=== PATIENT | female | born 1940 | race Caucasian/White ===

== ENCOUNTER 2017-06-22 16:08 | Outpatient (CLI) | payer MEDICARE, OTHER | END 2017-06-22 16:09 | disposition home or self-care (01) | LOC: BICMAMMO 16:08 | PROVIDERS: ATTEND Internal Medicine | DX: Z12.31 Encounter for screening mammogram for malignant neoplasm of breast (principal); R92.1 Mammographic calcification found on diagnostic imaging of breast | CPT/HCPCS: 77063; 77067 ==

== ENCOUNTER 2017-11-29 11:17 | Outpatient (CLI) | payer MEDICARE, OTHER | END 2017-11-29 11:18 | disposition home or self-care (01) | LOC: BICRAD 11:17 | PROVIDERS: ATTEND Internal Medicine | DX: M25.559 Pain in unspecified hip (principal) | CPT/HCPCS: 71046 ==

== ENCOUNTER 2018-02-10 11:22 | Observation (INO) | payer MEDICARE, OTHER ==
[2018-02-10 12:26] LABS: #Basophils 0.1 thou/uL (0.0-0.2); #Eosinphils 0.1 thou/uL (0.0-0.7); #Lymphocytes 1.6 thou/uL (1.20-3.40); #Monocytes 0.5 thou/uL (0.11-0.59); #Neutrophils 3.4 thou/uL (1.40-6.50); %Eosinophils 1.1 % (0.0-10.0); %Lymphocytes 29.1 % (21.0-51.0); %Neutrophils 60.9 % (42.0-75.0); Hemoglobin 12.3 g/dL (12.0-16.0); Mean Corpuscular HGB CONC 33.2 g/dL (32.0-36.0); Mean Corpuscular Hemoglobin 29.1 pg (27.0-31.0); Mean Corpuscular Volume 87.6 fL (78.0-98.0); Mean Platelet Volume 7.6 fL (7.4-10.4); Platelet Count 216 thou/uL (130-400); RBC Distribution Width 11.8 % (11.5-14.5); Red Blood Cell (RBC) Count 4.22 mill/uL (4.20-5.40); White Blood Cell (WBC) Count 5.6 thou/uL (4.8-10.8)
[2018-02-10 12:31] LABS: PTT 28.8 SEC (22.9-36.1); Prothrombin Time 12.8 SEC (12.0-14.7)
[2018-02-10 12:41] LABS: ALT (SGPT) 22 U/L (8-55); AST (SGOT) 24 U/L (5-34); Albumin 4.1 g/dL (3.4-4.8); Alkaline Phosphatase 58 U/L (40-150); Anion Gap 14 mmol/L (10-20); BUN (Urea Nitrogen) 10 mg/dL (9.8-20.1); Bilirubin, Total 0.5 mg/dL (0.2-1.2); Calc. Creatinine Clearance 0 mL/min (70-130); Calcium 9.3 mg/dL (7.8-10.44); Carbon Dioxide 27 mmol/L (23-31); Chloride 100 mmol/L (98-107); Estimated GFR-MDRD 73; Globulin 2.6 g/dL (2.4-3.5); Glucose 92 mg/dL (83-110); Potassium 3.7 mmol/L (3.5-5.1); Protein, Total 6.7 g/dL (6.0-8.3); Sodium 137 mmol/L (136-145)
[2018-02-10 12:42] LABS: CKMB 2.5 ng/mL (0-6.6); Troponin I Less than 0.010 ng/mL (< 0.028)
--- NOTE | 2018-02-10 12:46 | CT ---
CT HEAD NONCONTRAST: Date: 02/10/18 INDICATION: Altered mental status, possible TIA, confusion. FINDINGS: There is no evidence of intracranial hemorrhage, mass effect, or midline shift. Ventricular system is appropriate in size for patient's age. Imaged paranasal sinuses and mastoid air cells are clear. IMPRESSION: No acute intracranial abnormalities. POS: [facility]
[2018-02-10 15:25] VITALS: BMI 27.1
[2018-02-10] MEDS ORDERED: Ondansetron HCl/PF 4 MG/2 ML Vial IVP PRN (15:49)
[2018-02-10] MEDS ORDERED: hydrALAZINE 20 MG/ML VIAL SLOW IVP PRN (15:49)
[2018-02-10] MEDS ORDERED: Ondansetron ODT 4 MG TAB PO PRN (15:49)
--- NOTE | 2018-02-10 16:40 | HP ---
DATE OF ADMISSION: 02/10/2018 PRIMARY CARE PHYSICIAN: Dr. Sara Alvarez. CHIEF COMPLAINT: Confusion. HISTORY OF PRESENT ILLNESS: This is an 78-year-old female who presented to [facility] Emergency Department after apparently having a lapse of memory regarding location of a restauran t. The patient states she was driving in her car when she forgot the directions to a local coffee sh op to meet a friend. The patient knew who she was, the day, but she did not remember the directions on how to get to the restaurant. The patient states she called her friend whom she was about to meet at the coffee shop and decided to cancel the date. The patient drove home finding her home without difficulty without loss of consciousness, headache or unilateral weakness with complete resolution of her symptoms. The patient denied any recent exposure history, recent immunizations, new medications , recent fall, injury or difficulty with swallowing. The patient states she occasionally is forgetfu l of people's names, but otherwise is functional of all activities of daily living including driving, shopping, living independently and keeping her own calendar. The patient states she exercises appro ximately one time per week with a personal care aide. The patient apparently called her primary care navin ritchie's office who directed her to the emergency room for evaluation given her history and story. The patient underwent evaluation in the emergency room including CT of the brain showing no acute pro cess. NIH score was 0. All labs were negative and patient was transferred to [facility] for evaluation. PAST MEDICAL HISTORY: 1. History of small-bowel obstruction in 2013. 2. Osteoarthritis. 3. Gastroesophageal reflux disease. 4. History of actinic keratosis. 5. Hypertension. 6. Occipital neuralgia. 7. Cervical disk disease. 8. Asthma. 9. Irritable bowel syndrome. PAST SURGICAL HISTORY: 1. Status post carpal tunnel release on the right hand. 2. Status post transvaginal resection of the urethra. 3. Status post bilateral bunionectomy. 4. Status post left arthroscopic knee surgery. 5. Status post laparoscopic cholecystectomy. 6. Status post total vaginal hysterectomy secondarily to uterine prolapse. 7. Status post bilateral salpingo-oophorectomy. 8. Status post appendectomy. 9. Status post tendon repair of the right hip. CURRENT MEDICATIONS: List will need to be confirmed for completeness with the patient. 1. Levothyroxine 50 mcg p.o. daily. 2. Simvastatin 5 mg p.o. at bedtime. 3. Nortriptyline 20 mg p.o. b.i.d. 4. Tramadol 50 mg p.r.n. 5. Nitroglycerin 0.4 mg sublingually every 5 minutes p.r.n. chest pain. 6. Enteric-coated aspirin 81 mg p.o. daily. 7. Vitamin B complex 1 tablet p.o. daily. 8. Symbicort 160/4.5 two puffs inhaled b.i.d. 9. Coenzyme Q10 200 mg p.o. daily. 10. Hydrochlorothiazide 25 mg p.o. daily. 11. Lorazepam 0.5 mg p.r.n. 12. Metoprolol succinate 25 mg p.o. daily. 13. Rabeprazole 20 mg p.o. daily. 14. VESIcare 10 mg p.o. daily. ALLERGIES: ACETAMINOPHEN, AMOXICILLIN, CHLORPHENIRAMINE, AVELOX, HYDROCODONE, CLINDAMYCIN. FAMILY HISTORY: Mother at the age of 64 secondary to complications of cervical cancer. Father at age 62 from myocardial infarction. SOCIAL HISTORY: The patient is since 2006. No current alcohol, tobacco or illicit drug use. Functional of all activities of daily living. Resides in [place], [place]. REVIEW OF SYSTEMS: The following complete review of systems was negative, unless otherwise mentioned in the HPI or below: Constitutional: Weight loss or gain, ability to conduct usual activities. Skin: Rash, itching. Eyes: Double vision, pain. ENT/Mouth: Nose bleeding, neck stiffness, pain, tenderness. Cardiovascular: Palpitations, dyspnea on exertion, orthopnea. Respiratory: Shortness of breath, wheezing, cough, hemoptysis, fever or night sweats. Gastrointestinal: Poor appetite, abdominal pain, heartburn, nausea, vomiting, constipation, or diarr hea. Genitourinary: Urgency, frequency, dysuria, nocturia. Musculoskeletal: Pain, swelling. Neurologic/Psychiatric: Anxiety, depression. Allergy/Immunologic: Skin rash, bleeding tendency. Otherwise negative except as stated per HPI. PHYSICAL EXAMINATION: VITAL SIGNS: In the emergency room, blood pressure 184/95, pulse 92, respiratory rate 17, temperatur e 97.9 degrees Fahrenheit, O2 saturation 97% on room air. GENERAL APPEARANCE: This is an 78-year-old female, alert and oriented x3, pleasant, conver antonio, smiling, in no acute distress. HEENT: Pupils are equal, round, and reactive to light and accommodation. Extraocular muscles are in tact. No scleral icterus, no conjunctival injection. Nares patent. OP is clear. Teeth in good rep air. NECK: Supple, no cervical adenopathy, no thyromegaly, no carotid bruits, no JVD appreciated. Cervic al spine with full active and passive range of motion. No meningeal signs noted. CHEST: Occasional coarse breath sound in the bases bilaterally. CARDIOVASCULAR: S1, S2, without noted murmur, rub or gallop. ABDOMEN: Rounded, soft, nontender, nondistended. Bowel sounds are positive in all four quadrants. There is no hepatosplenomegaly, no abdominal bruits, no rebound or guarding appreciated. EXTREMITIES: Warm and dry with fair turgor. No clubbing, cyanosis or asymmetric edema appreciated. Pulses palpable distally at the dorsalis pedis, posterior tibial and popliteal arteries bilaterally. Capillary refill less than 2 seconds. NEUROLOGIC: Cranial nerves II-XII are grossly intact. No focal or lateralizing signs appreciated. PERTINENT LABORATORY DATA: Complete metabolic profile within normal limits. CBC within normal limit s. PT 12.8, INR 1.0, PTT 28.8. CT of the brain without contrast dated 02/10/2018 showed no acute in tracranial process. EKG dated 02/10/2018 by my interpretation shows sinus mechanism with heart rates in the 80s. Normal R-wave progression noted in the precordial leads. Normal axis. No acute ST-T w ave changes appreciated. ASSESSMENT AND PLAN: 1. Acute confusional state. Etiology unclear. Transient and resolved currently. We will check a c arotid Doppler study to rule out focal stenosis and questionable TIA like symptoms. Currently, no ev idence of neurologic deficit. Continue telemetry monitoring to rule out acute arrhythmia or dysrhyth chiquita. 2. Hypertension. Resume home antihypertensive regimen and monitor serial blood pressure trend. 3. Hypothyroidism. Resume levothyroxine 50 mcg daily. 4. Hyperlipidemia. Continue simvastatin 5 mg p.o. at bedtime. Check fasting lipid profile in the a .m. 5. Chronic moderate asthma. Stable currently. Resume home regimen to continue Symbicort 160/4.5 tw o puffs b.i.d. 6. Prophylaxis. Sequential compression devices while in bed. Pepcid 20 mg p.o. b.i.d. 7. Code status is FULL. Surrogate medical decision maker is the patient's son.
[2018-02-10] MEDS ORDERED: Atorvastatin Calcium 40 MG TAB PO SCH (21:00)
[2018-02-10] MEDS: Famotidine 20 MG TAB PO SCH (21:10)
[2018-02-11] MEDS ORDERED: Lorazepam 0.5 MG TAB PO PRN (00:17)
[2018-02-11 05:21] LABS: Cardiac Risk 2.4 (Less than 4.5)
[2018-02-11] MEDS ORDERED: Aspirin 81 mg Enteric Coated Tablet PO SCH (09:00)
[2018-02-11] MEDS: Famotidine 20 MG TAB PO SCH (09:25)
[2018-02-11] MEDS ORDERED: traMADol HCl 50 MG TAB PO PRN (10:51)
[2018-02-11] MEDS ORDERED: PROVENTIL INHALER 6.7 G (200 INHALATIONS) INH PRN (10:51)
[2018-02-11] MEDS ORDERED: Ubidecarenone 50 MG CAP PO SCH (11:30)
[2018-02-11 12:02] VITALS: BP 137/61; TEMP 98.6
--- NOTE | 2018-02-11 14:00 | ULT ---
CAROTID ULTRASOUND WITH PONCE SCALE AND DOPPLER DUPLEX COLOR FLOW IMAGING SPECTRAL ANALYSIS PERFORMED: DATE: 02/11/18 CLINICAL INDICATION: TIA. FINDINGS: There is scattered mild atherosclerotic calcification of the carotid arteries. PEAK SYSTOLIC VELOCITY (CM/S): Right CCA 67 Left CCA 54 Right ICA 46 Left ICA 39 There is antegrade flow within the visualized bilateral vertebral arteries. IMPRESSION: 1. No hemodynamically significant stenosis of the right internal carotid artery. 2. No hemodynamically significant stenosis of the left internal carotid artery. POS: [facility]
[2018-02-11] MEDS ORDERED: Mometasone/Formoterol 120 PUFF INHALER INH SCH (18:30)
[2018-02-11] MEDS ORDERED: Calcium Carbonate + Vit D 1 TAB PO SCH (21:00)
[2018-02-11] MEDS ORDERED: TROSPIUM 20 MG TABLET PO SCH (21:00)
[2018-02-11] MEDS ORDERED: Nortriptyline 10 MG CAP PO SCH (21:00)
[2018-02-11] MEDS ORDERED: Simvastatin 5 MG TAB PO SCH (21:00)
--- NOTE | 2018-02-11 21:31 | DIS ---
DATE OF ADMISSION: 02/10/2018 DATE OF DISCHARGE: 02/11/2018 DISCHARGE DIAGNOSES: 1. Acute confusional state, etiology unclear, resolved. 2. Hypertension, stable. 3. Hypothyroidism, stable. 4. Hyperlipidemia, stable. 5. Chronic moderate asthma, stable. CONSULTATIONS: None. PERTINENT LABORATORY AND X-RAY FINDINGS: Complete metabolic profile within normal limits. Total cho lesterol 186, triglycerides 77, HDL 79, LDL 92. CBC: Within normal limits. PT 12.8, INR 1.0, PTT [address] of the brain without contrast dated 02/10/2018 showed no acute intracranial process. Caroti d Doppler study dated 02/11/2018 showed no hemodynamically significant stenosis. HOSPITAL COURSE: Patient was initially placed in observation status after presenting with status pos t acute confusional episode and concern for potential TIA. Patient underwent initial CT imaging of t he brain showing no acute process as stated previously. Patient underwent general metabolic screenin g and evaluation with negative findings. Telemetry monitoring showed a sinus mechanism without evide nce of acute arrhythmia or dysrhythmia. Carotid Doppler study also showed no evidence of focal or he modynamically significant stenosis. Overall, patient remained clinically stable throughout the hospi samia course without recurrence of similar episode. I have examined the patient at the time of dischar ge and discussed followup instructions. Patient verbalized understanding and agreement ready for dis charge on 02/11/2018. DISCHARGE MEDICATIONS: 1. ProAir HFA 1-2 puffs inhaled q.4 hours p.r.n. 2. Enteric-coated aspirin 81 mg 1 tab p.o. daily. 3. Symbicort 160/4.5 two puffs inhaled b.i.d. 4. Calcium carbonate with vitamin D3 one tablet p.o. b.i.d. 5. Folic acid 1 tablet p.o. daily. 6. Hydrochlorothiazide 25 mg p.o. daily. 7. Levothyroxine 50 mcg p.o. daily. 8. Lorazepam 0.5 mg p.o. q.8 hours p.r.n. 9. Metoprolol XL 25 mg p.o. at bedtime. 10. Nitroglycerin 0.4 mg sublingually every 5 minutes p.r.n. chest pain. 11. Nortriptyline 20 mg p.o. b.i.d. 12. MiraLax 17 grams p.o. daily. 13. Rabeprazole 20 mg p.o. at bedtime. 14. Simvastatin 5 mg p.o. at bedtime. 15. VESIcare 10 mg p.o. daily. 16. Tramadol 50 mg p.o. q.i.d. p.r.n. 17. Coenzyme Q10 of 200 mg p.o. daily. FOLLOWUP: Patient to follow up with Dr. Sara Alvarez within 7 days of discharge. CONDITION ON DISCHARGE: Stable. ACTIVITY: Ad patti. DIET: Regular. CODE STATUS: FULL. DISPOSITION: Home on 02/11/2018.
[2018-02-12] MEDS ORDERED: Levothyroxine Sodium 50 MCG TAB PO SCH (06:00)
[2018-02-12] MEDS ORDERED: Polyethylene Glycol 3350 17 GM Packet PO SCH (09:00)
[2018-02-12] MEDS ORDERED: Multivitamin W/ Minerals 1 TAB PO SCH (09:00)
[2018-02-12] MEDS ORDERED: Stress 600 With Zinc 1 TAB PO SCH (09:00)
[2018-02-12] MEDS ORDERED: Hydrochlorothiazide 25 MG TAB PO SCH (09:00)
== END 2018-02-11 13:49 | disposition home or self-care (01) ==
LOC: SCSER 11:22 → 2SE 15:09
PROVIDERS: ADMIT Internal Medicine; ATTEND Internal Medicine
DX: R41.0 Disorientation, unspecified (principal); M19.90 Unspecified osteoarthritis, unspecified site; K21.9 Gastro-esophageal reflux disease without esophagitis; I10 Essential (primary) hypertension; K58.9 Irritable bowel syndrome, unspecified; M50.30 Other cervical disc degeneration, unspecified cervical region; J45.40 Moderate persistent asthma, uncomplicated; E78.5 Hyperlipidemia, unspecified; Z79.52 Long term (current) use of systemic steroids; Z79.82 Long term (current) use of aspirin; Z79.899 Other long term (current) drug therapy; Z88.0 Allergy status to penicillin; Z88.5 Allergy status to narcotic agent; Z88.1 Allergy status to other antibiotic agents; Z88.8 Allergy status to other drugs, medicaments and biological substances
CPT/HCPCS: 70450; 80053; 80061; 82553; 84484; 85025; 85610; 85730; 93005; 93880; 99285; G0378; 36415

== ENCOUNTER 2018-02-21 09:07 | Outpatient (CLI) | payer MEDICARE, OTHER ==
[~2018-02-21 09:07] MED LIST: Gadobenate Dimeglumine 529 MG/1 ML (20ML VIAL) ONE
--- NOTE | 2018-02-21 12:32 | MRI ---
MRI BRAIN WITH AND WITHOUT CONTRAST: Multiplanar, multisequential imaging of brain obtained. Post contrast images obtained with administr ation of 13 cc MultiHance IV. INDICATION: Headache. Encephalopathy. Memory loss. FINDINGS: Ventricles have normal size and position. Very mild chronic ischemic white matter change. No eviden ce of restricted diffusion. No mass or edema. The intracranial internal carotid arteries and proximal cerebral arteries show flow voids. Basilar a rtery is patent. Dural venous sinuses are patent. Paranasal sinuses and mastoids appear clear. Review of the calvarium reveals an enhancing lesion in the right calvarium and diploic space and exte nding to the dural surface, measuring approximately 1.3 cm in the coronal plane. On recent CT of , this lesion shows a lytic defect in the calvarium. This lesion was not present on the CT of 2013 which would make lesions such as hemangioma and arachnoid granulation unlikely. Metastatic les ion or other processes such as multiple myeloma are considerations. Another small diploic lesion in the left calvarium was present on prior studies and is consistent wit h a benign lesion. No other abnormal enhancement identified. IMPRESSION: 1. No evidence of parenchymal mass, infarct, or significant chronic ischemic change. 2. There is enhancing bone lesion involving the right calvarium which appears to represent a new les ion when compared to a CT scan from 2014. Metastasis or myeloma are considerations. Consider furthe r evaluation with bone scan. CODE T POS: [facility]
== END 2018-02-21 09:08 | disposition home or self-care (01) ==
LOC: SCSMRI 09:07
PROVIDERS: ATTEND Internal Medicine
DX: R51 Headache (principal); R41.0 Disorientation, unspecified; G93.40 Encephalopathy, unspecified; R93.0 Abnormal findings on diagnostic imaging of skull and head, not elsewhere classified
CPT/HCPCS: 70553; A9579

== ENCOUNTER 2018-02-27 10:38 | Outpatient (CLI) | payer MEDICARE, OTHER ==
--- NOTE | 2018-02-27 16:44 | NM ---
WHOLE BODY BONE SCAN: Date: 02/27/18 HISTORY: 78-year-old female with abnormality of skull on MRI. No known history of cancer. FINDINGS: Correlation is made with the MRI of brain dated 02/21/[address] scan of the brain dated 02/10/18 and 09/17/13. There is a focal area of increased uptake in the right calvarium corresponding to the finding on the MRI and the CT scan of 02/10/18. This lesion is suspicious for metastasis. There are foci of increased uptake in the anterior aspects of the right 7th, 8th, 9th, and 10th ribs in a pattern consistent with trauma. Increased uptake in the shoulders, elbows, wrists, hands, knees, feet, and hips are consistent with d egenerative changes. There is heterogeneity in the spine also likely due to degenerative changes. Tracer excretion through the kidneys is normal. 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 POS: [facility]
== END 2018-02-27 10:39 | disposition home or self-care (01) ==
LOC: NM 10:38
PROVIDERS: ATTEND Internal Medicine
DX: R93.0 Abnormal findings on diagnostic imaging of skull and head, not elsewhere classified (principal); R41.0 Disorientation, unspecified; R53.83 Other fatigue; R51 Headache
CPT/HCPCS: 78306; A9503

== ENCOUNTER 2018-03-07 08:26 | Outpatient (CLI) | payer MEDICARE, OTHER ==
[2018-03-07] MEDS ORDERED: Iopamidol 300 61% 100 ML VIAL FS ONE (09:00)
--- NOTE | 2018-03-07 14:27 | CT ---
CT THORAX WITH IV CONTRAST CT ABDOMEN AND PELVIS WITH IV CONTRAST: Date: 03/07/18 HISTORY: Right calvarial osseous lesions suspicious for metastatic disease. C79.51. FINDINGS: CT THORAX: There are several tiny pulmonary nodules seen at the periphery of the right upper, as well as the rig ht lower lobes, with largest more pleural based pulmonary nodule seen in the right middle lobe adjace nt to the pleura measuring 7.0 mm. Remainder of the pulmonary nodules measure 4.0 mm or less and scat tered along the periphery of the right upper and right lower lobes. There are also scattered noncalci fied subcentimeter pulmonary nodules also seen at the periphery of the left upper and left lower lobe s. There is mild biapical pleural and parenchymal scarring. No pleural effusion is identified. There is no evidence of lymphadenopathy. Vascular calcifications seen in the thoracic aorta and involving the coronary arteries. There is bilateral glenohumeral osteoarthropathy with degenerative changes seen in the thoracic spine . No lytic or sclerotic osseous lesions are appreciated. CT ABDOMEN AND PELVIS: There is a subcentimeter, too small to characterize, hypodense lesion right hepatic lobe stable from prior study in 2013. No additional hepatic lesions are seen. Post cholecystectomy changes are seen wi th mild intra and extrahepatic biliary ductal dilatation with similar degree of dilatation likely rel ated to reservoir effect. Subcentimeter, too small to characterize, hypodense lesions are again seen in each kidney. The spleen, pancreas, bilateral adrenal glands, and urinary bladder demonstrate a normal CT appearanc e. Opacified bowel is normal in appearance. Vascular calcifications seen in the abdominal aorta and involving the iliac arteries. Degenerative changes are seen in the spleen. There is left convex curvature of the thoracolumbar spin e. Vascular calcifications seen in the abdominal aorta and involving the iliac arteries. Incidental note is made of a circumaortic left renal vein. There is no evidence of lymphadenopathy, free fluid, or fluid collection in the abdomen or pelvis. IMPRESSION: 1. Multiple scattered peripherally located pulmonary nodules within the upper and lower lobes bilate rally, as well as in the right middle lobe. The pulmonary nodules measure 4.0 mm or less aside from a slightly larger pulmonary nodule in the right middle lobe measuring 7.0 mm. Metastatic disease canno t be entirely excluded. These pulmonary nodules are below resolution of PET scan. 2. No evidence of lymphadenopathy. 3. No acute findings are seen in the abdomen or pelvis. 4. Remainder of the above findings are as described above. POS: [facility]
== END 2018-03-07 08:27 | disposition home or self-care (01) ==
LOC: SCSCT 08:26
PROVIDERS: ATTEND Internal Medicine
DX: M89.9 Disorder of bone, unspecified (principal); R41.0 Disorientation, unspecified; R51 Headache; R53.83 Other fatigue; R91.8 Other nonspecific abnormal finding of lung field; I70.0 Atherosclerosis of aorta; I70.8 Atherosclerosis of other arteries; N28.9 Disorder of kidney and ureter, unspecified; D73.0 Hyposplenism; M43.8X5 Other specified deforming dorsopathies, thoracolumbar region; I25.10 Atherosclerotic heart disease of native coronary artery without angina pectoris; J98.4 Other disorders of lung; M47.814 Spondylosis without myelopathy or radiculopathy, thoracic region; K76.9 Liver disease, unspecified; K83.8 Other specified diseases of biliary tract; M19.012 Primary osteoarthritis, left shoulder; M19.011 Primary osteoarthritis, right shoulder; Z90.49 Acquired absence of other specified parts of digestive tract
CPT/HCPCS: 71260; 74177

== ENCOUNTER 2018-05-15 09:53 | Outpatient (CLI) | payer MEDICARE, OTHER ==
[2018-05-15] MEDS ORDERED: Gadobenate Dimeglumine 529 MG/1 ML (20ML VIAL) ONE (10:39)
--- NOTE | 2018-05-15 12:37 | MRI ---
MRI BRAIN WITH AND WITHOUT CONTRAST: HISTORY: Headache. Encephalopathy. Memory loss. Abnormal enhancement involving the right calvarium on previ ous MRI. COMPARISON: Brain MRIs from 02/21/2018 and 07/11/2016. CORRELATION: Whole body bone scan from 02/27/2018. TECHNIQUE: A brain MRI is performed with and without intravenous Gadolinium administration. Multisequential, mu ltiplanar imaging is performed. FINDINGS: No hemorrhage on the axial gradient echo sequence. No parenchymal mass, mass effect, or midline shif t. Age appropriate brain volume. Cortical alvarez white matter differentiation is preserved. No evidence of hydrocephalus. No significant T2 or FLAIR white matter hyperintensities. Adequate aeration of the paranasal sinuses and mastoid air cells. Central arterial flow voids are maintained. Absent restricted diffusion. There is no pathologic enhancement of the brain parenchyma. Redemonstration of an enhancing focus involving the right parietal calvarium. This focus corresponds to the area of increased radiotracer localization noted on previous bone scan. There does appear to be a second focus of intrinsic T1 hyperintensity involving the left calvarium. A small hemangioma i n this region is favored, given the lack of corresponding findings on previous bone scan. IMPRESSION: 1. Absent restricted diffusion. No pathologic enhancement of the brain parenchyma. 2. Persistent enhancing focus in the right calvarium, which is presumed to be a solitary osseous met astatic lesion. There is a second focus of what appears to be intrinsic T1 hyperintensity involving the left calvarium, likely representing a small hemangioma. POS: [facility]
== END 2018-05-15 09:54 | disposition home or self-care (01) ==
LOC: TBSIIMAG 09:53
PROVIDERS: ATTEND Neurological Surgery
DX: R22.0 Localized swelling, mass and lump, head (principal)
CPT/HCPCS: 70553; 82565; A9579

== ENCOUNTER 2018-05-29 08:09 | Emergency (ER) | payer MEDICARE, OTHER ==
[2018-05-29 09:07] LABS: ALT (SGPT) 18 U/L (8-55); AST (SGOT) 25 U/L (5-34); Albumin 4.1 g/dL (3.4-4.8); Alkaline Phosphatase 60 U/L (40-150); Anion Gap 14 mmol/L (10-20); BUN (Urea Nitrogen) 11 mg/dL (9.8-20.1); Bilirubin, Total 0.5 mg/dL (0.2-1.2); Calc. Creatinine Clearance 0 mL/min (70-130); Calcium 9.5 mg/dL (7.8-10.44); Carbon Dioxide 26 mmol/L (23-31); Chloride 99 mmol/L (98-107); Estimated GFR-MDRD 68; Globulin 2.6 g/dL (2.4-3.5); Glucose 95 mg/dL (83-110); Lipase 33 U/L (8-78); Potassium 3.4 mmol/L (3.5-5.1); Protein, Total 6.7 g/dL (6.0-8.3); Sodium 136 mmol/L (136-145)
[2018-05-29] MEDS ORDERED: Nitroglycerin 2% Ointment 1 INCH/1 GM Packet ONE (09:14)
[2018-05-29] MEDS ORDERED: Aspirin Chewable 81 MG TAB ONE (09:14)
[2018-05-29 09:34] LABS: #Basophils 0.1 thou/uL (0.0-0.2); #Eosinphils 0.1 thou/uL (0.0-0.7); #Lymphocytes 1.6 thou/uL (1.20-3.40); #Monocytes 0.4 thou/uL (0.11-0.59); #Neutrophils 3.2 thou/uL (1.40-6.50); %Basophils 1.2 % (0.0-1.0); %Eosinophils 1.8 % (0.0-10.0); %Lymphocytes 29.6 % (21.0-51.0); %Monocytes 8.1 % (0.0-10.0); %Neutrophils 59.3 % (42.0-75.0); Hemoglobin 12.8 g/dL (12.0-16.0); Mean Corpuscular HGB CONC 33.8 g/dL (32.0-36.0); Mean Corpuscular Hemoglobin 30.4 pg (27.0-31.0); Mean Platelet Volume 6.6 fL (7.4-10.4); Platelet Count 247 thou/uL (130-400); RBC Distribution Width 12.3 % (11.5-14.5); White Blood Cell (WBC) Count 5.4 thou/uL (4.8-10.8)
--- NOTE | 2018-05-29 09:54 | RAD ---
CHEST 2 VIEWS: Date: 05/29/18 HISTORY: Chest pain. Anterior chest wall and left inferior sharp pain. COMPARISON: 11/29/17. FINDINGS: Mild levoscoliosis of the upper lumbar/lower thoracic vertebral column. Biapical pleural thickening w hich appears stable. There is minimal scattered fibronodular parenchymal changes in the apices. Heart size is within normal limits. No confluent pneumonia, overt edema, or pleural effusion. Old granulom atous disease. IMPRESSION: Overall stable appearing biapical pleural thickening with some fibrolinear and nodular parenchymal ch anges in both upper lung zones, showing no significant change from prior study. No pneumonia, edema, or pleural effusion. Old granulomatous disease. Atherosclerosis of the aorta. Levoscoliosis of the up per lumbar/lower thoracic vertebral column. POS: [facility]
--- NOTE | 2018-05-29 12:33 | CT ---
CHEST CT ANGIOGRAM WITH 3D RENDERING: History: Sharp chest pain. Elevated D-Dimer. Comparison: Chest CT scan 03-07-18 FINDINGS: No CT evidence for acute pulmonary embolism. LAD coronary artery calcific changes. Numerous small mos tly subpleural and pleural based nodules up to approximately 0.5 cm are noted bilaterally, stable fro m prior study. Minimal scarring in the right middle lobe and lingula, stable. No mediastinal mass or adenopathy. Small hiatal hernia. Status post cholecystectomy. Visualized upper abdomen is unremarkabl e. No evidence for aortic aneurysm or dissection. IMPRESSION: No CT evidence for acute pulmonary embolism. No evidence for aortic aneurysm or dissection. Numerous stable bilateral small up to approximately 0.5 cm pulmonary nodules, unchanged from prior study. Smal l hiatal hernia. Minimal stable scarring in the right middle lobe and lingula. Consideration for follow up chest CT scan in approximately 6 months in regards to the numerous small pulmonary nodules. Code LN POS: [facility]
== END 2018-05-29 12:01 | disposition home or self-care (01) ==
LOC: SCSER 08:09
DX: K44.9 Diaphragmatic hernia without obstruction or gangrene (principal); R91.1 Solitary pulmonary nodule; E78.5 Hyperlipidemia, unspecified; J45.909 Unspecified asthma, uncomplicated; Z79.899 Other long term (current) drug therapy; Z79.82 Long term (current) use of aspirin
CPT/HCPCS: 71046; 71275; 80053; 83690; 84484; 85025; 85379; 93005; 96360; 96361

== ENCOUNTER 2018-06-25 13:23 | Outpatient (CLI) | payer MEDICARE, OTHER ==
--- NOTE | 2018-06-25 16:42 | BD ---
DEXA BONE DENSITY STUDY: Date: 06/25/18 HISTORY: Postmenopausal. FINDINGS: Lumbar Spine: BMD (g/cm2) L1 1.271 T-Score: +2.6 L2 1.265 T-Score: +2.2 L3 1.197 T-Score: +1.0 L4 1.154 T-Score: +0.8 Total 1.225 T-Score: +1.6 Left Femoral Neck: 0.740 T-Score: -1.0 Total Femur: 0.886 T-Score: -0.5. IMPRESSION: Normal bone mineral density of the left femoral neck and lumbar spine. POS: [facility]
== END 2018-06-25 13:24 | disposition home or self-care (01) ==
LOC: BICMAMMO 13:23
PROVIDERS: ATTEND Internal Medicine
DX: Z12.31 Encounter for screening mammogram for malignant neoplasm of breast (principal); M85.89 Other specified disorders of bone density and structure, multiple sites; R92.1 Mammographic calcification found on diagnostic imaging of breast
CPT/HCPCS: 77063; 77067; 77080

== ENCOUNTER 2018-10-19 09:58 | Outpatient (CLI) | payer MEDICARE, OTHER ==
--- NOTE | 2018-10-19 11:22 | MRI ---
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 Followup. TECHNIQUE: Multiple sequences obtained in axial, sagittal, and coronal planes; pre and post IV injection of gado linium-based contrast agent: MultiHance 13 mL. FINDINGS: The ventricles are normal in size and configuration. There is no major intraaxial signal abnormality , restricted diffusion, abnormal intraaxial enhancement, mass, midline shift or any other mass effect , recent intraaxial hemorrhage, or extraaxial fluid collection. There are minimal chronic ischemic w sharon matter changes, atypically mild for a patient of this age. Again noted is the enhancing, irregu larly-shaped intraosseous lesion at the anterior upper portion of the right parietal bone, slightly p osterior to the right coronal suture. This lesion measures approximately 2 x 1.4 x 0.8 cm. The inne r table of the calvarium is eroded or destroyed, and the lesion abuts the right dural surface. The a butting portion of the dura has increased enhancement, but the lesion does not penetrate the dura. T here is no edema in the adjacent brain parenchyma. There has been no significant interval change sin ce 05/15/2018. The small focus of intrinsic T1 hyperintensity in the contralateral left upper pariet al bone, probably representing a hemangioma of bone, is unchanged. There is no interval change overa ll compared to 05/15/2018 and 02/21/2018. IMPRESSION: 1. 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 2. The brain is essentially normal. 3. No interval change since 02/21/2018 and 05/15/2018. og[] POS: [facility]
== END 2018-10-19 09:59 | disposition home or self-care (01) ==
LOC: SCSMRI 09:58
PROVIDERS: ATTEND Neurological Surgery
DX: D49.6 Neoplasm of unspecified behavior of brain (principal); C79.51 Secondary malignant neoplasm of bone
CPT/HCPCS: 70553; 82565

== ENCOUNTER 2019-06-27 14:04 | Outpatient (CLI) | payer MEDICARE, OTHER ==
--- NOTE | 2019-06-27 14:52 | MMO ---
Bilateral MAMMO Bilat Screen DDI+GT. CLINICAL HISTORY: Patient is 79 years old and is seen for screening. The patient has no family history of breast cancer. The patient has no personal history of cancer. VIEWS: The views performed were: bilateral craniocaudal with tomosynthesis and bilateral mediolateral oblique with tomosynthesis. FILMS COMPARED: The present examination has been compared to prior imaging studies performed at [facility] on 06/21/2016, 11/10/2016, 06/22/2017 and 06/25/2018. This study has been interpreted with the assistance of computer-aided detection. MAMMOGRAM FINDINGS: The breasts are heterogeneously dense, which could obscure a lesion on mammography. There are stable calcifications seen in both breasts. There are no suspicious masses, suspicious calcifications, or new areas of architectural distortion. IMPRESSION: THERE IS NO MAMMOGRAPHIC EVIDENCE OF MALIGNANCY. A ROUTINE FOLLOW-UP MAMMOGRAM IN 1 YEAR IS RECOMMENDED. THE RESULTS OF THIS EXAM WERE SENT TO THE PATIENT. ACR BI-RADS Category 2 - Benign finding MAMMOGRAPHY NOTE: 1. A negative mammogram report should not delay a biopsy if a dominant of clinically suspicious mass is present. 2. Approximately 10% to 15% of breast cancers are not detected by mammography. 3. Adenosis and dense breasts may obscure an underlying neoplasm. Reported by: ZANE SOTO MD Electonically Signed: [id number]
== END 2019-06-27 14:05 | disposition home or self-care (01) ==
LOC: BICMAMMO 14:04
PROVIDERS: ATTEND Internal Medicine
DX: Z12.31 Encounter for screening mammogram for malignant neoplasm of breast (principal)
CPT/HCPCS: 77063; 77067

== ENCOUNTER 2019-10-15 13:47 | Outpatient (CLI) | payer MEDICARE, OTHER ==
[~2019-10-15 13:47] MED LIST changes: -Gadobenate Dimeglumine 529 MG/1 ML (20ML VIAL) ONE; +Magnevist 469MG/ML 20 ML VIAL ONE
--- NOTE | 2019-10-15 15:21 | MRI ---
Exam: Brain MRI with and without contrast HISTORY: Follow-up brain tumor. COMPARISON: 10/19/2018 FINDINGS: Gradient echo sequence: No hemorrhage Calvarium: With exception of the right parietal lobe, appropriate marrow signal intensity. In the rig ht parietal lobe, redemonstration of a enhancing focus centered in the diploic space measuring 2.1 x 0.9 x 0.7 cm. Mild reactive changes of the underlying dura are redemonstrated. Midline brain parenchyma: Unremarkable Cerebrum:No parenchymal mass, mass effect or midline shift. Brain volume, age-appropriate. Cortical g ray-white matter differentiation is preserved. No significant T2 or FLAIR white matter hyperintensities. Ventricles: No evidence of hydrocephalus. Sinuses and mastoid air cells: Adequate aeration Diffusion: Central arterial flow is maintained. Absent restricted diffusion. Postcontrast images: No pathologic enhancement of the brain parenchyma. IMPRESSION: 1. No pathologic enhancement the brain parenchyma 2. Stable enhancing focus in the right parietal diploic space. 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 There is been no significant interval change in size.
== END 2019-10-15 13:48 | disposition home or self-care (01) ==
LOC: TBSIIMAG 13:47
PROVIDERS: ATTEND Neurological Surgery
DX: C71.9 Malignant neoplasm of brain, unspecified (principal)
CPT/HCPCS: 70553; 82565; A9579

== ENCOUNTER 2020-08-06 11:09 | Outpatient (CLI) | payer MEDICARE, OTHER | END 2020-08-06 11:10 | disposition home or self-care (01) | LOC: BICMAMMO 11:09 | PROVIDERS: ATTEND Internal Medicine | DX: Z12.31 Encounter for screening mammogram for malignant neoplasm of breast (principal) | CPT/HCPCS: 77063; 77067 ==

== ENCOUNTER 2021-01-18 13:24 | Outpatient (CLI) | payer MEDICARE, OTHER | END 2021-01-18 13:25 | disposition home or self-care (01) | LOC: TBSIIMAG 13:24 | PROVIDERS: ATTEND Neurological Surgery | DX: D49.6 Neoplasm of unspecified behavior of brain (principal); G89.29 Other chronic pain | CPT/HCPCS: 70553; 82565 ==

== ENCOUNTER 2021-08-12 13:04 | Outpatient (CLI) | payer MEDICARE, OTHER | END 2021-08-12 13:05 | disposition home or self-care (01) | LOC: BICMAMMO 13:04 | PROVIDERS: ATTEND Internal Medicine | DX: Z12.31 Encounter for screening mammogram for malignant neoplasm of breast (principal) | CPT/HCPCS: 77063; 77067 ==

== ENCOUNTER 2023-09-27 15:25 | Outpatient (CLI) | payer MEDICARE, OTHER | END 2023-09-27 15:26 | disposition home or self-care (01) | LOC: SCSRAD 15:25 | PROVIDERS: ATTEND Physician Assistant | DX: M25.571 Pain in right ankle and joints of right foot (principal); S82.61XA Displaced fracture of lateral malleolus of right fibula, initial encounter for closed fracture ==

== ENCOUNTER 2025-04-04 14:05 | Outpatient (CLI) | payer MEDICARE, OTHER | END 2025-04-04 14:06 | disposition home or self-care (01) | LOC: SCSBT 14:05 | PROVIDERS: ATTEND Family Medicine Sports Medicine | DX: Z13.820 Encounter for screening for osteoporosis (principal); M81.0 Age-related osteoporosis without current pathological fracture; M85.851 Other specified disorders of bone density and structure, right thigh; M85.852 Other specified disorders of bone density and structure, left thigh | CPT/HCPCS: 77080 ==